=== PATIENT | female | born 1980 | race Caucasian/White ===

== ENCOUNTER → 2016-12-07 | Outpatient (CLI) | payer MEDICAID | LOC: M OUTALCOH 07:50 | PROVIDERS: ATTEND Psychiatry & Neurology Psychiatry | DX: F10.20 Alcohol dependence, uncomplicated (principal) ==

== ENCOUNTER 2017-01-11 13:00 | Outpatient (RCR) | payer MEDICAID | END 2017-01-18 | LOC: M OUTALCOH 13:00 | PROVIDERS: ATTEND Psychiatry & Neurology Psychiatry | DX: F10.20 Alcohol dependence, uncomplicated (principal); F17.200 Nicotine dependence, unspecified, uncomplicated ==

== ENCOUNTER 2017-02-16 13:00 | Outpatient (RCR) | payer MEDICAID | END 2017-02-17 | LOC: M OUTALCOH 13:00 | PROVIDERS: ATTEND Psychiatry & Neurology Psychiatry | DX: F10.20 Alcohol dependence, uncomplicated (principal); F17.200 Nicotine dependence, unspecified, uncomplicated ==

== ENCOUNTER 2017-04-11 13:00 | Outpatient (RCR) | payer MEDICAID | END 2017-04-19 | LOC: M OUTALCOH 13:00 | PROVIDERS: ATTEND Psychiatry & Neurology Psychiatry | DX: F10.20 Alcohol dependence, uncomplicated (principal); F17.200 Nicotine dependence, unspecified, uncomplicated ==

== ENCOUNTER → 2017-08-20 | Outpatient (CLI) | payer SELFPAY, MEDICAID | LOC: M OUTALCOH 10:05 | DX: F10.20 Alcohol dependence, uncomplicated (principal) ==

== ENCOUNTER → 2018-03-01 | Outpatient (CLI) | payer MEDICAID | LOC: M OUTALCOH 07:42 | DX: F10.20 Alcohol dependence, uncomplicated (principal) ==

== ENCOUNTER 2018-03-19 14:29 | Outpatient (RCR) | payer MEDICAID | END 2018-03-20 | LOC: M OUTALCOH 14:29 | DX: F10.20 Alcohol dependence, uncomplicated (principal); F17.200 Nicotine dependence, unspecified, uncomplicated ==

== ENCOUNTER 2018-03-26 11:49 | Outpatient (RCR) | payer MEDICAID | END 2018-04-19 | LOC: M OUTALCOH 04-01 14:00 | DX: F10.20 Alcohol dependence, uncomplicated (principal); F17.200 Nicotine dependence, unspecified, uncomplicated ==

== ENCOUNTER 2018-05-15 08:57 | Outpatient (RCR) | payer MEDICAID | END 2018-05-20 | LOC: M OUTALCOH 08:57 | PROVIDERS: ATTEND Psychiatry & Neurology Psychiatry | DX: F10.20 Alcohol dependence, uncomplicated (principal); F17.200 Nicotine dependence, unspecified, uncomplicated ==

== ENCOUNTER 2018-06-19 08:45 | Outpatient (RCR) | payer MEDICAID | END 2018-06-20 | LOC: M OUTALCOH 08:45 | PROVIDERS: ATTEND Psychiatry & Neurology Psychiatry | DX: F10.20 Alcohol dependence, uncomplicated (principal); F17.200 Nicotine dependence, unspecified, uncomplicated ==

== ENCOUNTER 2018-07-17 08:00 | Outpatient (RCR) | payer MEDICAID | END 2018-07-18 | LOC: M OUTALCOH 08:00 | PROVIDERS: ATTEND Psychiatry & Neurology Psychiatry | DX: F10.20 Alcohol dependence, uncomplicated (principal); F17.200 Nicotine dependence, unspecified, uncomplicated ==

== ENCOUNTER 2018-08-15 09:00 | Outpatient (RCR) | payer MEDICAID | END 2018-08-18 | LOC: M OUTALCOH 09:00 | PROVIDERS: ATTEND Psychiatry & Neurology Psychiatry | DX: F14.20 Cocaine dependence, uncomplicated (principal); F15.20 Other stimulant dependence, uncomplicated; F10.10 Alcohol abuse, uncomplicated; F17.200 Nicotine dependence, unspecified, uncomplicated ==

== ENCOUNTER 2018-09-03 09:00 | Outpatient (RCR) | payer MEDICAID | END 2018-09-17 | LOC: M OUTALCOH 09:00 | PROVIDERS: ATTEND Psychiatry & Neurology Psychiatry | DX: F10.20 Alcohol dependence, uncomplicated (principal); F17.200 Nicotine dependence, unspecified, uncomplicated; F15.10 Other stimulant abuse, uncomplicated; F12.10 Cannabis abuse, uncomplicated ==

== ENCOUNTER 2019-01-09 21:01 | Emergency (ER) | payer MEDICAID ==
[~2019-01-09] VITALS: Ht 167.6 cm; Wt 100.9 kg
[2019-01-09 21:02] VITALS: BP 137/80
--- NOTE | 2019-01-10 09:20 | REP ---
CT BRAIN WITHOUT IV CONTRAST: CT brain performed without IV contrast. Ventricles are normal in size and position with no midline shift or mass effect. Garcia-white differentiation is well maintained. There is no acute intracranial hemorrhage or extra-axial fluid collection. Bone window examination is unremarkable. IMPRESSION: Negative noncontrast CT brain. Preliminary report provided by [facility] at the time of the exam. Electronically Signed by Joshua Garcia MD 01/10/2019 10:54 A
--- NOTE | 2019-01-10 09:35 | REP ---
CT CERVICAL SPINE WITHOUT IV CONTRAST: CT cervical spine performed in the axial plane. Sagittal and coronal reconstruction images are performed. There is no fracture or dislocation. Vertebral bodies are normal in height and are well aligned. There is no prevertebral soft tissue swelling. Mild spurring and ligamentous calcification is seen anteriorly at C5-6. No abnormal density is seen in the spinal canal. IMPRESSION: No evidence of acute fracture or dislocation. Preliminary report provided by [facility] at the time of the exam. Electronically Signed by Joshua Garcia MD 01/10/2019 10:54 A
--- NOTE | 2019-01-10 09:37 | REP ---
CT MAXILLOFACIAL BONES: CT maxillofacial bones were performed in the axial plane. Sagittal and coronal reconstruction images are performed. There is a slightly displaced fracture of the right nasal bones. No other maxillofacial bone fracture is seen. There is no orbital bone fracture. Paranasal sinuses are clear with no air fluid levels. Globes are intact. Diffuse infraorbital edema is seen in the facial soft-tissues extending down into the level of the mandible. Focal hematoma in the right facial soft-tissue measures approximately 3.0 x 1.3 cm. IMPRESSION: Slightly displaced fracture right nasal bones. Soft-tissue edema right facial soft-tissues between the level of the right orbit and right mandible. Small focal soft-tissue hematoma. Preliminary report provided by [facility] at the time of the exam. Electronically Signed by Joshua Garcia MD 01/10/2019 10:55 A
== END 2019-01-09 23:15 | disposition left against medical advice (07) ==
LOC: M ED 21:01
DX: Z53.29 Procedure and treatment not carried out because of patient's decision for other reasons (principal)

== ENCOUNTER 2019-01-16 09:30 | Outpatient (RCR) | payer MEDICAID | END 2019-01-18 | LOC: M OUTALCOH 09:30 | PROVIDERS: ATTEND Psychiatry & Neurology Psychiatry | DX: F10.20 Alcohol dependence, uncomplicated (principal); F15.10 Other stimulant abuse, uncomplicated; F12.10 Cannabis abuse, uncomplicated ==